=== PATIENT | female | born 1995 | race African-American/Black ===

== ENCOUNTER 2017-09-10 23:09 | Emergency (ER) | payer OTHER ==
[~2017-09-10] VITALS: Ht 152.4 cm; Wt 97.5 kg
[~2017-09-10 23:09] MED LIST: ACYCLOVIR 400400 MG PO; BENTYL 20 MG TA20 M1 PO; DEPO-PROVE150 MG/1 M IM; KEFLEX500 MG PO; NITROFURANTOIN100 MG PO; NOHOMEMEDICATIONS; NYAMYC15 GM TOP; PEPCID20 MG PO; PRENATAL COMPL1 EACH PO; PROTONIX 20 MG20 M1 PO; REGLAN 10 MG TA10 MG PO; TYLENOL WITH CO1 TAB PO
[2017-09-11 00:08] LABS: HEMOGLOBIN 12.8 gm/dL (12.0-15.0); MCH 27.8 pg (26.0-34.0); MCHC 33.7 g/dL (28.0-37.0); MCV 82.4 fL (80.0-100.0); RBC 4.61 mil/uL (4.20-5.00); RDW 14.6 % (10.5-14.5); WBC 9.1 thou/uL (4.0-11.0)
[2017-09-11 00:12] LABS: CALCIUM 8.6 mg/dL (8.5-10.1); CREATININE 0.7 mg/dL (0.6-1.0); POTASSIUM 3.6 mmol/L (3.5-5.1)
[2017-09-11 00:18] LABS: ALBUMIN 3.2 g/dL (3.4-5.0); TOTAL BILIRUBIN 0.2 mg/dL (<0.1-1.0); TOTAL PROTEIN 7.2 g/dL (6.4-8.2)
[2017-09-11] MEDS ORDERED: ZOFRAN ODT4 MG PO (00:37)
[2017-09-11] MEDS ORDERED: BENTYL 10 MG CA10 M1 PO (00:45)
[2017-09-11 00:57] VITALS: BP 120/66
== END 2017-09-11 00:58 | disposition home or self-care (01) ==
LOC: ER 23:09
PROVIDERS: Emergency Medicine
DX: R11.2 Nausea with vomiting, unspecified (principal); R19.7 Diarrhea, unspecified

== ENCOUNTER 2018-02-01 11:32 | Emergency (ER) | payer OTHER ==
[~2018-02-01] VITALS: Ht 149.9 cm; Wt 95.3 kg
[~2018-02-01 11:32] MED LIST changes: +BENTYL 10 MG CA10 M1 PO; +ZOFRAN ODT4 MG PO
[2018-02-01] MEDS ORDERED: TRAMADOL 50 MG50 MG PO (13:26)
[2018-02-01] MEDS ORDERED: NAPROSYN500 MG PO (13:26)
[2018-02-01 14:54] VITALS: BP 124/79
== END 2018-02-01 14:55 | disposition home or self-care (01) ==
LOC: ER 11:32
DX: O9A.211 Injury, poisoning and certain other consequences of external causes complicating pregnancy, first trimester (principal); Z3A.00 Weeks of gestation of pregnancy not specified; S52.041A Displaced fracture of coronoid process of right ulna, initial encounter for closed fracture; X58.XXXA Exposure to other specified factors, initial encounter; Y93.89 Activity, other specified; Y92.89 Other specified places as the place of occurrence of the external cause; Y99.8 Other external cause status

== ENCOUNTER 2018-02-27 21:58 | Emergency (ER) | payer OTHER ==
[~2018-02-27] VITALS: Ht 152.4 cm; Wt 99.8 kg
[~2018-02-27 21:58] MED LIST changes: +NAPROSYN500 MG PO; +TRAMADOL 50 MG50 MG PO
[2018-02-27 22:13] VITALS: BP 143/75
== END 2018-02-27 23:57 | disposition home or self-care (01) ==
LOC: ER 21:58
DX: S42.401A Unspecified fracture of lower end of right humerus, initial encounter for closed fracture (principal); W19.XXXA Unspecified fall, initial encounter; Y93.89 Activity, other specified; Y92.89 Other specified places as the place of occurrence of the external cause; Y99.8 Other external cause status